=== PATIENT | female | born 1995 | race Caucasian/White ===

== ENCOUNTER 2016-09-25 11:38 | Emergency (ER) | payer OTHER ==
--- NOTE | 2016-09-25 11:50 | CPEKG ---
Heart Rate: 43 RR Interval: 1395 P-R Interval: 156 QRSD Interval: 90 QT Interval: 472 QTC Interval: 400 P Riverview: 44 QRS [place]view: 85 T Wave [place]: 51 EKG Severity - OTHERWISE NORMAL ECG - EKG Impression: SINUS BRADYCARDIA EKG Impression: ATRIAL PREMATURE COMPLEX Electronically Signed By: Aung Pena 25-Sep-2016 21:17:43
--- NOTE | 2016-09-25 13:15 | EDPHY ---
H & P Time Seen by Provider: 09/25/16 12:53 HPI/ROS: HPI Tingling in the left upper extremity. 21-year-old female by private vehicle with her father. She is a student [employer]. She is currently undergoing exams at the University. She has a history of anxiety, depression and migraine headaches. She states that she has had an upper respiratory infection with dry cough, nasal congestion and clear rhinorrhea for the last several days. She reports that this morning at 11:00 a.m. she developed which she describes as tingling in her pinky. She reports that this tingling sensation then migrated through her hand, upper wrist and forearm to her arm and up into her left shoulder. She reports that it lasted for a couple of hours but then got better. She reports that now it comes on intermittently. She had similar symptoms about a year ago associated with a migraine headache but on the right side. ROS: Constitutional: No fever, no chills. As above. Eyes: No discharge. No changes in vision. ENT: No sore throat. As above. Respiratory: As. No shortness of breath. Cardiac: No chest pain, no palpitations. Gastrointestinal: No abdominal pain, no vomiting, no diarrhea. Genitourinary: No hematuria. No dysuria or increased frequency with urination. Musculoskeletal: No back pain. No neck pain. No myalgias or arthralgias. Skin: No rashes. Neurological: No headache. No focal weakness or loss of sensation. As above. Past medical history: Depression, anxiety, migraine headaches. She takes a benzodiazepine as well as propranolol on a regular basis. Social history: Student University. Here with her father. Nonsmoker. Denies alcohol. Physical Exam: General Appearance: Alert, no distress. This patient is responding to questions appropriately and in full sentences. This patient appears well- hydrated and well-nourished. Eyes: Pupils equal and round and reactive to light at 3-2 mm bilaterally, no pallor or injection. No lid edema, erythema or injection. No nystagmus. No photophobia. ENT, Mouth: Mucous membranes are moist. The pharyngeal tissues are unremarkable. No edema or swelling. No asymmetry suggestive of abscess. No erythema or exudates. Respiratory: There are no retractions, lungs are clear to auscultation with good air movement bilaterally. Cardiovascular: Regular rate and rhythm. Bradycardia. No murmur appreciated. Gastrointestinal: Abdomen is soft and nontender, no masses, bowel sounds normal. No focal tenderness at McBurney's point. No Peck sign. Neurological: Motor sensory function is grossly intact in all myotomes in dermatomes of the bilateral upper extremities. Cranial nerves are normal. Gait is normal. Skin: Warm and dry, no rashes. Musculoskeletal: Neck is supple and nontender. No pain on flexion of her neck. No suboccipital tenderness on palpation. No tenderness on palpation of the lateral soft tissues of the neck. No carotid breweries auscultated. Extremities are symmetrical. All joints range without pain or impingement. Psychiatric: No agitation. No depression. Database: EKG: EKG time is 11:49 a.m.; EKG shows a narrow complex normal sinus bradycardia rhythm with a ventricular rate of 43. The NH, QRS, QT intervals are within normal limits. There are no ST-T wave changes indicative of ischemic or injury pattern. No evidence of right heart strain. Interpreted by me. Imaging: Procedures: Emergency department course: The patient's presentation is not consistent with CVA, TIA, MS, Guillain-[place] syndrome, myasthenia gravis. Her presentation is more consistent with an anxiety type reaction versus an atypical migraine syndrome. She feels comfortable going home and I feel she is safe for discharge. I discussed the results of her EKG and my concern that she may be over doing it on her propanolol. I explained to her that I did not want her to take propranolol again until further evaluated by her physician. I will refer her to a neurologist for follow-up. Return to emergency department precautions were discussed with her in detail. She is to return to the emergency department if her symptoms have not resolved completely within the next 24 hours or she is to return to the emergency department immediately if her symptoms worsen, she develops weakness, loss of sensation or has other serious concerns. She and her father in agreement with this. All of their questions were answered. She was discharged home in good condition. Differential Diagnosis: The differential diagnosis on this patient includes but is not limited to atypical migraine syndrome, anxiety reaction, stress reaction. Multiple sclerosis, TIA, CVA, Guillain-[place] syndrome, myasthenia gravis unlikely. This represents a partial list of diagnoses considered. These considerations are based on history, physical exam, past history, reassessment and diagnostic testing. Smoking Status: Never smoked Constitutional: Initial Vital Signs Temperature (C) 36.8 C 09/25/16 11:40 Heart Rate 56 L 09/25/16 11:40 Respiratory Rate 14 09/25/16 11:40 Blood Pressure 146/92 H 09/25/16 11:40 O2 Sat (%) 98 09/25/16 11:40 O2 Delivery Mode Room Air Allergies/Adverse Reactions: acetaminophen [From Percocet] Allergy (Verified 09/25/16 11:43) oxycodone [From Percocet] Allergy (Verified 09/25/16 11:43) Departure - Departure Disposition: Home, Routine, Self-Care Clinical Impression: Paresthesia, Bradycardia Condition: Good Instructions: Paresthesia (ED) Additional Instructions: Read and follow provided instructions. Follow-up with your primary care physician in 1-2 days for re-evaluation. I think your propranolol was slowing her heart rate too much. Follow-up with Neurology, Dr. Terell Quinones or 1 of his partners as discussed for re-evaluation of the tingling in your left within the next 1 to 2 days as well. Do not take your propranolol until you have been seen by her primary care physician and re-evaluated for a slow heart rate. Take medication as prescribed. Return to the emergency department immediately for worsening altered sensation, weakness, loss of sensation, worsening headache or other serious concerns. If your symptoms have not completely resolved within 24 hours return to the emergency department for re-evaluation. Referrals: Qiana Butterfield MD [Primary Care Provider] - As per Instructions Terell Quinones MD [Medical Doctor] - As per Instructions
[2016-09-25 13:26] VITALS: BP 136/82; PULSE 58; RESP 16; TEMP 98.1; O2SAT 97
== END 2016-09-25 13:26 | disposition home or self-care (01) ==
DX: R20.2 Paresthesia of skin (principal); R00.1 Bradycardia, unspecified

== ENCOUNTER 2018-06-06 22:41 | Emergency (ER) | payer OTHER ==
[2018-06-06] MEDS ORDERED: KETOROLAC 15 MG/1 ML SDV IVP ONE (23:07)
--- NOTE | 2018-06-06 23:09 | EDPHY ---
H & P Stated Complaint: mid back and rib pain x 1 hour, pain w breathing, vomited x1 Time Seen by Provider: 06/06/18 22:58 HPI/ROS: Chief Complaint: Back pain, rib pain HPI: 23-year-old woman states she has a history of recurrent rib and back pain. Patient states she was watching TV tonight when she developed some upper abdominal pain. She felt nauseated and vomited once. She then developed pain in her right side of her back and bilateral ribs. She is prescribed Valium for this by her primary care physician until she is able to get to a chiropractor in be Re adjusted. Patient states that she has had this happen multiple times in the past. Patient is complaining of some mild low abdominal pain but no upper abdominal pain. No fevers or chills. No cough. She states that hurts her bilateral front of her is that she takes a deep breath. No leg pain or swelling. She is not on control. No family history of blood clots. She did take Valium tonight and ondansetron without any relief. ROS: 10 systems were reviewed and were negative except those elements noted in the HPI. PMH: Diabetes, depression Social History: No smoking, no alcohol, no recreational drug use Family History: non-contributory Physical Exam: Gen: Awake, Alert, No Distress HEENT: Nose: no rhinorrhea Eyes: PERRLA, EOMI Mouth: Moist mucosa Neck: Supple, no JVD Chest: nontender, lungs clear to auscultation Heart: S1, S2 normal, no murmur Abd: Soft, non-tender, no guarding Back: no CVA tenderness, no midline tenderness Ext: no edema, non-tender Skin: no rash Neuro: CN II-XII intact, Sensation grossly intact, Strength 5/5 in bilateral upper and lower extremities - Personal History LMP (Females 10-55): IUD In Place Current Tetanus Diphtheria and Acellular Pertussis (TDAP): Yes - Medical/Surgical History Hx Asthma: Yes Hx Chronic Respiratory Disease: No Hx Diabetes: No Hx Cardiac Disease: No Hx Renal Disease: No Hx Cirrhosis: No Hx Alcoholism: No Hx HIV/AIDS: No Hx Splenectomy or Spleen Trauma: No Other PMH: anxiety, depression, PCOS, asthma, endometriosis - Social History Smoking Status: Never smoked Constitutional: Initial Vital Signs Temperature (C) 36.5 C 06/06/18 22:44 Heart Rate 87 06/06/18 22:44 Respiratory Rate 16 06/06/18 22:44 Blood Pressure 153/81 H 06/06/18 22:44 O2 Sat (%) 96 06/06/18 22:44 O2 Delivery Mode Room Air Allergies/Adverse Reactions: oxycodone [From Percocet] Allergy (Verified 06/06/18 22:43) Vomiting Home Medications: Medication Instructions Recorded Diazepam [Valium 10 MG (*)] 06/06/18 Duloxetine HCl [Cymbalta] 06/06/18 Metformin HCl [Metformin 1000 mg] 06/06/18 Spironolactone [Aldactone 25 MG 06/06/18 (*)] Medical Decision Making ED Course/Re-evaluation: Patient is improved after Toradol. I recommend she continue with acetaminophen and ibuprofen. I have recommended that she avoid Valium for musculoskeletal pain or discomfort. Follow up with primary care physician for any concerns. She has no evidence of PE. She has a perc of 0. No leg pain or swelling. No other concerning features at this time. - Data Points Laboratory Results: Laboratory Results 06/06/18 23:20 06/06/18 23:20 06/06/18 06/06/18 23:20 23:20 WBC 11.96 10^3/uL H 10^3/uL (3.80-9.50) RBC 4.91 10^6/uL 10^6/uL (4.18-5.33) Hgb 14.5 g/dL g/dL (12.6-16.3) Hct 42.4 % % (38.0-47.0) MCV 86.4 fL fL (81.5-99.8) MCH 29.5 pg pg (27.9-34.1) MCHC 34.2 g/dL g/dL (32.4-36.7) RDW 13.1 % % (11.5-15.2) Plt Count 298 10^3/uL 10^3/uL (150-400) MPV 10.2 fL fL (8.7-11.7) Neut % (Auto) 58.9 % % (39.3-74.2) Lymph % (Auto) 29.2 % % (15.0-45.0) Edgar % (Auto) 6.6 % % (4.5-13.0) Eos % (Auto) 4.3 % % (0.6-7.6) Baso % (Auto) 0.7 % % (0.3-1.7) Nucleat RBC Rel Count 0.0 % % (0.0-0.2) Absolute Neuts (auto) 7.05 10^3/uL H 10^3/uL (1.70-6.50) Absolute Lymphs (auto) 3.49 10^3/uL H 10^3/uL (1.00-3.00) Absolute Monos (auto) 0.79 10^3/uL 10^3/uL (0.30-0.80) Absolute Eos (auto) 0.51 10^3/uL H 10^3/uL (0.03-0.40) Absolute Basos (auto) 0.08 10^3/uL 10^3/uL (0.02-0.10) Absolute Nucleated RBC 0.00 10^3/uL 10^3/uL (0-0.01) Immature Gran % 0.3 % % (0.0-1.1) Immature Gran # 0.04 10^3/uL 10^3/uL (0.00-0.10) Sodium 137 mEq/L mEq/L (135-145) Potassium 4.3 mEq/L mEq/L (3.5-5.2) Chloride 103 mEq/L mEq/L (97-110) Carbon Dioxide 25 mEq/l mEq/l (22-31) Anion Gap 9 mEq/L mEq/L (6-14) BUN 9 mg/dL mg/dL (7-23) Creatinine 0.7 mg/dL mg/dL (0.6-1.0) Estimated GFR > 60 Glucose 105 mg/dL H mg/dL (70-100) Calcium 9.9 mg/dL mg/dL (8.5-10.4) Medications Given: Discontinued Medications Ketorolac Tromethamine (Toradol) 15 mg IVP EDNOW ONE Stop: 06/06/18 23:08 Last Admin: 06/06/18 23:16 Dose: 15 mg Departure - Departure Disposition: Home, Routine, Self-Care Clinical Impression: Chest wall pain Condition: Good Instructions: Chest Wall Pain (ED) Additional Instructions: Take ibuprofen, 600 mg every 8 hr. You may alternate with acetaminophen, 1000 mg every 8 hr. I recommend you avoid Valium for musculoskeletal pain. This important that you remain moving and active when you a musculoskeletal pain and Valium will only make you sleepy. Follow up with primary care physician in 3-4 days for further evaluation. Referrals: Qiana Butterfield MD [Primary Care Provider] - As per Instructions
[2018-06-06] MEDS ORDERED: KETOROLAC 15 MG/1 ML SDV ONE (23:17)
[2018-06-06 23:27] LABS: PLATELET COUNT 298 10^3/uL (150-400)
[2018-06-07 00:37] VITALS: BP 108/78
== END 2018-06-07 00:37 | disposition home or self-care (01) ==
DX: R07.89 Other chest pain (principal); F32.9 Major depressive disorder, single episode, unspecified; E11.9 Type 2 diabetes mellitus without complications; Z79.4 Long term (current) use of insulin
CPT/HCPCS: 96374; J1885

== ENCOUNTER → 2018-06-11 | Outpatient (CLI) | payer OTHER | LOC: BMCIMAGING 08:06 | PROVIDERS: ATTEND Family Medicine | DX: R10.9 Unspecified abdominal pain (principal); K80.20 Calculus of gallbladder without cholecystitis without obstruction; K76.0 Fatty (change of) liver, not elsewhere classified ==

== ENCOUNTER 2018-07-10 11:16 | Day surgery (SDC) | payer OTHER ==
[2018-07-10] MEDS ORDERED: ceFAZolin 2 GM/DEXTROSE 100 ML IV ONE (11:27)
[2018-07-10] MEDS ORDERED: LR 1,000 ML IV ONE (11:28)
[2018-07-10] MEDS ORDERED: DEXAMETHASONE 10 MG/ML VIAL IVP ONE (12:07)
[2018-07-10] MEDS ORDERED: BUPIVACAINE 0.25% 30 ML SDV ONE (12:30)
[2018-07-10] MEDS ORDERED: SCOPOLAMINE HYDROBROMIDE 1 MG/3 DAYS PATCH TD ONE (12:41)
[2018-07-10] MEDS ORDERED: MIDAZOLAM 2 MG/2 ML VIAL ONE (12:41)
--- NOTE | 2018-07-10 12:41 | PDANEPAE ---
ANE History of Present Illness gall stones, here for lap christina ANE Past Medical History - Cardiovascular History Hx Hypertension: No Hx Arrhythmias: No Hx Chest Pain: No Hx Coronary Artery / Peripheral Vascular Disease: No Hx CHF / Valvular Disease: No Hx Palpitations: No - Pulmonary History Hx COPD: No Hx Asthma/Reactive Airway Disease: Yes Hx Recent Upper Respiratory Infection: No Hx Oxygen in Use at Home: No Hx Sleep Apnea: No Sleep Apnea Screening Result - Last Documented: Negative Pulmonary History Comment: inhalers - Neurologic History Hx Cerebrovascular Accident: No Hx Seizures: No Hx Dementia: No Neurologic History Comment: migraines 2x yrly - Endocrine History Hx Diabetes: No - Renal History Hx Renal Disorders: No - Liver History Hx Hepatic Disorders: Yes Hepatic History Comment: gall bladder w/pain & discomfort, nausea & vomiting - Neurological & Psychiatric Hx Hx Neurological and Psychiatric Disorders: Yes Neurological / Psychiatric History Comment: anxiety & depression - Cancer History Hx Cancer: No - Congenital Disorder History Hx Congenital Disorders: No - GI History Hx Gastrointestinal Disorders: No - Other Health History Other Health History: eczema. polycystic ovarian syndrome - Chronic Pain History Chronic Pain: Yes (endometriosis) - Surgical History Prior Surgeries: 05/2018 laparoscopic - endometriosis. wisdom teeth ANE Review of Systems Review of Systems: - Exercise capacity METS (RN): 4 METS ANE Patient History - Allergies Allergies/Adverse Reactions: oxycodone [From Percocet] Allergy (Verified 06/06/18 22:43) Vomiting - Home Medications Home Medications: Diazepam [Valium 10 MG (*)] 06/06/18 [Last Taken 07/10/18] Duloxetine HCl [Cymbalta] 06/06/18 [Last Taken 07/10/18] Metformin HCl [Metformin 1000 mg] 06/06/18 [Last Taken 07/10/18] Spironolactone [Aldactone 25 MG (*)] 06/06/18 [Last Taken 07/10/18] Claritin-D 24 Hour Tablet 07/10/18 [Last Taken 07/10/18] - NPO status NPO Since - Liquids (Date): 07/10/18 NPO Since - Liquids (Time): 09:30 NPO Since - Solids (Date): 07/09/18 NPO Since - Solids (Time): 18:30 - Smoking Hx Smoking Status: Never smoked - Family Anes Hx Family Hx Anesthesia Complications: neg ANE Labs/Vital Signs - Vital Signs Blood Pressure: 113/72 Heart Rate: 84 Respiratory Rate: 16 O2 Sat (%): 95 Height: 172.72 cm Weight: 97.522 kg ANE Physical Exam - Airway Neck exam: FROM Mallampati Score: Class 1 Mouth exam: normal dental/mouth exam - Pulmonary Pulmonary: no respiratory distress, no rales or rhonchi - Cardiovascular Cardiovascular: regular rate and rhythym, no murmur, rub, or gallop - ASA Status ASA Status: III ANE Anesthesia Plan Anesthesia Plan: general endotracheal anesthesia Total IV Anesthesia: No
--- NOTE | 2018-07-10 12:41 | PDHPUP ---
History & Physical Update H&P update statement: This history and physical update is based on an assessment of the patient which was completed after admission or registration (within 24 hours), but prior to the surgery/procedure. H&P update: H&P reviewed & patient examined, no change in patient's condition since H&P completed
[2018-07-10] MEDS ORDERED: MIDAZOLAM 2 MG/2 ML VIAL IVP ONE (12:42)
[2018-07-10] MEDS ORDERED: SCOPOLAMINE HYDROBROMIDE 1 MG/3 DAYS PATCH TD SCH (12:45)
[2018-07-10] MEDS ORDERED: PROPOFOL/EMULSION 500 MG/50 ML BOTTLE IV ONE ×2 (12:47→13:22)
[2018-07-10] MEDS ORDERED: DEXAMETHASONE 4 MG/ML VIAL ONE (12:47)
[2018-07-10] MEDS ORDERED: ONDANSETRON 4 MG/2 ML VIAL ONE ×2 (12:47→14:58)
[2018-07-10] MEDS ORDERED: PHENYLEPHRINE HCL 100 MCG/ML SYR ONE (12:47)
[2018-07-10] MEDS ORDERED: PROPOFOL 200 MG/20 ML VIAL ONE (12:47)
[2018-07-10] MEDS ORDERED: ROCURONIUM 100 MG/10 ML VIAL ONE (12:47)
[2018-07-10] MEDS ORDERED: fentaNYL 250 MCG/5 ML INJ ONE (12:47)
[2018-07-10] MEDS ORDERED: LIDOCAINE 2% 100 MG/5 ML SYR ONE (12:47)
[2018-07-10] MEDS ORDERED: GLYCOPYRROLATE 0.2 MG/1 ML VIAL ONE (12:47)
[2018-07-10] MEDS ORDERED: NEOSTIGMINE METHYLSULFATE 10 MG/10 ML MDV ONE (12:47)
[2018-07-10] MEDS ORDERED: HYDROmorphONE/DILAUDID 2 MG/ML INJ ONE (13:27)
[2018-07-10] MEDS ORDERED: HYDROmorphONE/DILAUDID 1 MG/ML INJ IVP PRN (13:57)
[2018-07-10] MEDS ORDERED: fentaNYL 100 MCG/2 ML INJ IVP PRN (13:57)
[2018-07-10] MEDS ORDERED: LR 500 ML IV PRN (13:57)
[2018-07-10] MEDS ORDERED: MEPERIDINE 25 MG/0.5 ML AMP IVP PRN (13:57)
[2018-07-10] MEDS ORDERED: METOCLOPRAMIDE 10 MG/2 ML VIAL IVP PRN (13:57)
[2018-07-10] MEDS ORDERED: HYDROCODONE/APAP 5/325 TAB PO PRN (13:57)
[2018-07-10] MEDS ORDERED: NALOXONE HCL 0.4 MG/ML INJ IVP PRN (13:57)
[2018-07-10] MEDS ORDERED: PHENYLEPHRINE HCL 100 MCG/ML SYR IVP PRN (13:57)
[2018-07-10] MEDS ORDERED: DIAZEPAM 10 MG/2 ML SYR IVP PRN (13:57)
[2018-07-10] MEDS ORDERED: PROMETHAZINE HCL 25 MG/ML INJ IVP PRN (13:57)
--- NOTE | 2018-07-10 14:20 | POSTANESTH ---
Post Anesthetic Evaluation Cardiovascular Status: Normal, Stable Respiratory Status: Normal, Stable Level of Consciousness/Mental Status: Can Participate in Eval, Moderately Sleepy Pain Control: Adequate, Prn Tx Ordered Nausea/Vomiting Control: Adequate, Prn Tx Ordered Complications Possibly Related to Anesthesia: None Noted
[2018-07-10] MEDS ORDERED: ONDANSETRON 4 MG/2 ML VIAL IVP PRN (14:32)
--- NOTE | 2018-07-10 14:32 | POSTOPPROG ---
Post Op Note Date of Operation: 07/10/18 Surgeon: Sabino Whitmore (, FACS) Underground Bolting Machine Operator: Opal Meza RN-FA Anesthesiologist: Emerita Womack DO Anesthesia: GET(General Endotracheal) Pre-op Diagnosis: cholelithiasis/endometriosis Post-op Diagnosis: same Procedure: lap christina/lap appendectomy Findings: chronic cholecystitis/possible endometrial implant appendix Inf/Abcess present in the surg proc area at time of surgery?: No Bowel Protocol: N/A Clean Closure Performed: N/A Specimen(s): gallbladder, appendix
[2018-07-10] MEDS ORDERED: DIAZEPAM 10 MG/2 ML SYR ONE (14:56)
--- NOTE | 2018-07-10 15:05 | GOP ---
[f rep st] OPERATIVE REPORT DATE OF OPERATION: SURGEON: Sabino Whitmore MD, FACS CHEMISTRY TUTOR: Opal Meza RN-FA. ANESTHESIA: General endotracheal. ANESTHESIOLOGIST: Rafael Womack DO. PREOPERATIVE DIAGNOSIS: 1. Symptomatic cholelithiasis. 2. Polycystic ovarian disease. 3. Endometriosis, status post laparoscopy. POSTOPERATIVE DIAGNOSIS: 1. Symptomatic cholelithiasis. 2. Polycystic ovarian disease. 3. Endometriosis, status post laparoscopy. PROCEDURE PERFORMED: 1. Laparoscopic cholecystectomy. 2. Laparoscopic appendectomy. FINDINGS: Mild chronic-appearing cholecystitis with multiple 3 to 4 mm cholesterol gallstones. Mild hepatic steatosis. Possible endometriosis implants on the appendix. ESTIMATED BLOOD LOSS: 10 cc. DESCRIPTION OF PROCEDURE: After informed consent was obtained, the patient was brought to the operating room and placed under general anesthesia. The abdomen was prepped and draped in the usual fashion. Before proceeding, a time-out and identification of the patient were performed. 0.25% Marcaine was used to infiltrate all incision sites. A prior infraumbilical incision was utilized for placement of a 12 mm port. The old scar was excised. Ventral traction was applied to the abdominal wall, and a Veress needle was introduced into the peritoneal cavity. Position was confirmed by saline infusion. A pneumoperitoneum was established with CO2 gas to a pressure of 15 mmHg. The Veress needle was withdrawn and replaced with a 12 mm bladeless trocar. A 30-degree 5 mm scope was introduced, and the peritoneal cavity was visualized. An additional 5 mm port was placed in the subxiphoid position to the right of the falciform ligament. A 5 mm port was placed in the right upper quadrant midclavicular line and in the right upper quadrant anterior axillary line. This allowed introduction of atraumatic grasping forceps. The gallbladder was retracted by the fundus and elevated cephalad. It was mildly distended and showed evidence of chronic inflammation. The peritoneum overlying the triangle of Calot was incised and dissected circumferentially, clearing the cystic duct and dispatching the cystic artery posteriorly with the Harmonic Scalpel. The cystic duct was then doubly hemoclipped and divided, and the gallbladder dissected away from the liver edge using the Harmonic scalpel for hemostasis. After the gallbladder was detached, it was retrieved through the umbilical port site and opened off the field, noted to contain multiple cholesterol stones. Specimens were submitted for permanent section. The 12 mm trocar was returned to the umbilical site. It was directed towards the cecum. The appendix was visualized and noted to have a small 2 mm mucoid implant on the outer serosa with adjacent angiogenesis. This was sufficient to suspect endometriosis, and the appendix was then removed as follows. The mesoappendix was taken down with the Harmonic scalpel. The appendix was from the cecum with a single firing of the ILIANA stapler, and this was retrieved through the umbilical port site using an Endopouch. The operative rene of both sites were irrigated and aspirated until the effluent was clear and hemostasis appeared secure. The umbilical fascial defect was repaired with interrupted 0 Vicryl sutures using a transfascial closure needle. The pneumoperitoneum was then evacuated. The umbilical deep subcutaneous tissues were approximated with 3-0 Monocryl suture. Skin was closed with 4-0 Monocryl suture in a subcuticular fashion. Topical Dermabond was applied. The patient was returned extubated to the recovery room in satisfactory condition. Needle, sponge, and instrument count were correct. COMPLICATIONS: None. /[id number]/MODL MTDD
[2018-07-10] MEDS ORDERED: fentaNYL 100 MCG/2 ML INJ ONE (15:20)
[2018-07-10 16:58] VITALS: BP 118/63
[2018-07-13] MEDS ORDERED: PATCH REMOVAL 1 EA PATCH TD SCH (12:42)
== END 2018-07-10 17:08 | disposition home or self-care (01) ==
LOC: FSGY 11:16
PROVIDERS: ATTEND Surgery
DX: K80.10 Calculus of gallbladder with chronic cholecystitis without obstruction (principal); E28.2 Polycystic ovarian syndrome; N80.5 Endometriosis of intestine; G43.909 Migraine, unspecified, not intractable, without status migrainosus
CPT/HCPCS: J0690; J1100; J1170; J2001; J2250; J2370; J2405; J2704; J3010; J3360